=== PATIENT | male | born 1930 | race Caucasian/White ===

== ENCOUNTER 2017-10-17 06:12 | Inpatient (IN) ==
[2017-10-17] MEDS ORDERED: Heparin 10,000 UNITS/10 ML Vial (for IV use) ONE (06:26)
[2017-10-17] MEDS ORDERED: Thrombin Topical 20,000 UNIT Spray Kit TOPICAL ONE (06:26)
[2017-10-17] MEDS ORDERED: Heparin/NS PF Inj 500 ML ONE (06:26)
[2017-10-17] MEDS ORDERED: Protamine Sulfate Inj 50 MG/5 ML Vial ONE ×2 (06:26→10:31)
[2017-10-17] MEDS ORDERED: Bupivacaine PF 0.5% Inj 30 ML Vial ONE (06:30)
--- NOTE | 2017-10-17 07:22 | P.PNVS ---
- Pre-operative Note Planned Procedure: RIGHT leg bypass Interval History: The patient is feeling well, continued pain in the foot but no motor dysfunction. No CP, F/C or other changes in health that would preclude OR. Labs: Hct 31 plt 93 INR 1.2 cr 2.3 Blood: T&S Imaging: angiogram reviewed - poor target as explained to patient. Orders: NPO Ancef 2g IV OCTOR Post-operative Destination: PACU Operative site marked: Yes Consent: Informed consent has been obtained from Alan Fenton. I have explained the procedure in detail and discussed the risks, benefits, and potential complications. All questions have been answered. Patient Contact Information: Son [phone]
[2017-10-17] MEDS ORDERED: Chlorhexidine Gluconate 2% 1 Pack (2 Cloths) TOPICAL SCH (07:30)
[2017-10-17] MEDS ORDERED: Metoprolol Tartrate 25 MG Tablet PO SCH (07:30)
[2017-10-17] MEDS ORDERED: Sodium Chlor 0.9% Inj 500 ML IV.SIG SCH (08:00)
[2017-10-17] MEDS ORDERED: Glycopyrrolate Inj 1 MG/5 ML Syringe IV.PUSH ONE (11:06)
[2017-10-17] MEDS ORDERED: Lidocaine PF 1% Inj 5 ML Syringe INFILTRATN ONE (11:06)
[2017-10-17] MEDS ORDERED: Neostigmine Inj 5 MG/5 ML Syringe IV.PUSH ONE (11:06)
[2017-10-17] MEDS ORDERED: Phenylephrine/NS 1000 MCG/10ML Syringe IV.PUSH ONE (11:06)
--- NOTE | 2017-10-17 11:22 | P.OP ---
Date of procedure: 10/17/17 Procedure: R SFA-peroneal bypass (occluded popliteal aneurysm) with rGSV Implants: none Anesthesia: GETA Surgeon: Tomi Flowers MD Director Media: Maria Ward Estimated blood loss (mL): 200 IV fluids (mL): 2,000 Urine output (mL): 700 Operation and Findings: very disease and calcific arteries after bypass, + Doppler signals at peroneal and PT
[2017-10-17] MEDS ORDERED: Bisacodyl 10 MG Supp RECTAL PRN (11:23)
[2017-10-17] MEDS ORDERED: Morphine Inj 4 MG/ML Vial IV.PUSH PRN (11:23)
[2017-10-17] MEDS ORDERED: fentaNYL Citrate Inj 100 MCG/2 ML Ampul ONE ×2 (11:54→11:55)
--- NOTE | 2017-10-17 13:43 | MP ---
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 PROCEDURE PERFORMED: Right SFA to posterior tibial artery bypass with reverse great saphenous vein. ATTENDING SURGEON: Tomi Flowers MD MANAGER OF CORPORATE SURGEON: Maria Ward. ANESTHESIA: General. INDICATION: Mr. Fenton is an 87-year-old gentleman with a right popliteal artery aneurysm. He has recently occluded this aneurysm and has a right lower extremity rest pain. He was taken to the operating room for bypass. DESCRIPTION OF PROCEDURE: Informed consent was obtained from the patient, he was taken to the operating room and placed supine on the operating table. An appropriate timeout was taken to assure the patient's identity, operative site, and planned procedure. The administration of 2 grams of Ancef was initiated prior to skin incision and will be discontinued after single preoperative dose. Everyone in the room agreed with the timeout and we proceeded. He was prepped from his nipples to his toes and an incision was made in the medial aspect of the right leg, carried down through subcutaneous tissue with electrocautery. The saphenous vein was identified and dissected free from the mid thigh to the mid calf. Side branches were ligated with 3-0 silk. The vein was marked for orientation, clamped distally and transected with the distal limb being oversewn with 3-0 silk. The vein was clamped proximally and oversewn and placed in saline. The above-knee popliteal artery was identified after dissecting the medial aspect of the incision deeper and retracted the muscle posteriorly. The below-knee popliteal artery was exposed, it was noted to be aneurysmal and we dissected down to the proximal posterior tibial artery, which was calcified, but patent. This was dissected free for several centimeters and a tunnel was created between these 2 arterial exposures. The patient was then systemically heparinized is greater than 250. Proximal control of the distal SFA were obtained with profunda clamps and a longitudinal arteriotomy was made with an 11 blade, extended with Wardell scissors. The vein was spatulated and sewn end-to-side in reverse fashion and the proximal limb end anastomosis was performed with 6-0 Prolene suture. was flushed and noted to be hemostatic. Vein was clamped distally. The vein was distended and passed through the tunnel, distended, taking caution not to twist it. Proximal and distal control of the posterior tibial artery were obtained with profunda clamps and a longitudinal arteriotomy was made with an 11 blade, extended with Grover scissors. The vein was cut to the appropriate length, spatulated and sewn end-to-side with running 6-0 Prolene suture. 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 This was done with 5-0 Prolene suture. The clamps were released. There was a strong peroneal artery signal and a posterior tibial artery signal as well. The wounds were irrigated. The heparin reversed with protamine. The wounds were made hemostatic and closed with 2-0 Polysorb, 3-0 Polysorb, and 4-0 Monocryl. The sponge and needle counts were correct at the end of the case. I was present, scrubbed, and performed the entire procedure. MD REID Ochoa/ch/ll , 12:05 PM , 12:13 PM GARCIA
[2017-10-17] MEDS: Senna/Docusate Sodium 8.6/50 MG Tablet PO SCH (20:15)
[2017-10-17] MEDS: Famotidine 20 MG Tablet PO SCH (20:16)
[2017-10-18 05:53] LABS: Calcium 7.5 mg/dL (8.5-10.1); Carbon Dioxide 19.9 meq/L (21.0-32.0); Hematocrit 21.3 % (39.0-51.0); Hemoglobin 7.4 gm/dL (13.0-17.0); Mean Corpuscular Hemoglobin 34.4 pg (27.0-34.0); Mean Corpuscular Volume 98.3 fL (80.0-100.0); Mean Platelet Volume 7.2 fL (7.0-11.0); Platelet Count 89 th/mm3 (150-450); Potassium 4.7 meq/L (3.5-5.1); Red Blood Count 2.16 mil/mm3 (4.50-5.90); Red Cell Distribution Width 14.4 % (11.6-17.2); White Blood Count 10.8 th/mm3 (4.0-11.0)
[2017-10-18] MEDS ORDERED: Sodium Chlor 0.9% Inj 500 ML IV.SIG ONE (07:27)
--- NOTE | 2017-10-18 07:31 | P.PNVS ---
Subjective Post Op Day #: 1 Procedure: R SFA-PT bypass with rGSV for occluded popliteal aneurysm Subjective/Hospital Course: pain controlled, feels good overall. UOP low last night. Objective Vital Signs / I&O: Vital Signs 10/17/17 11:42 10/17/17 11:45 10/17/17 12:00 Temperature 96.0 F L Pulse Rate 51 L 51 L 52 L Respiratory Rate 16 16 16 Blood Pressure 121/73 118/65 115/78 Pulse Oximetry 100 100 100 10/17/17 12:15 10/17/17 16:00 10/17/17 17:31 Temperature 97.1 F L 97.6 F Pulse Rate 50 L 71 Respiratory Rate 16 16 16 Blood Pressure 112/63 122/62 Pulse Oximetry 100 96 10/17/17 19:00 10/17/17 20:00 10/17/17 21:00 Temperature 97.4 F L Pulse Rate 78 74 72 Respiratory Rate 16 Blood Pressure 113/65 Pulse Oximetry 95 10/17/17 22:00 10/17/17 23:00 10/18/17 00:00 Temperature 97.3 F L Pulse Rate 74 67 66 Respiratory Rate 16 Blood Pressure 102/61 Pulse Oximetry 96 10/18/17 01:00 10/18/17 02:00 10/18/17 03:00 Temperature 97.7 F Pulse Rate 68 64 61 Respiratory Rate 16 Blood Pressure 119/65 Pulse Oximetry 94 L 10/18/17 04:00 10/18/17 05:00 10/18/17 06:00 Temperature Pulse Rate 66 64 62 Respiratory Rate Blood Pressure Pulse Oximetry 10/18/17 07:00 Temperature 98.3 F Pulse Rate 60 Respiratory Rate 16 Blood Pressure 126/66 Pulse Oximetry 95 Intake & Output 10/17/17 10/18/17 10/18/17 18:59 06:59 18:59 Intake Total 2580 / 2580 960 / 960 Output Total 1020 / 1020 170 / 170 Balance 1560 / 1560 790 / 790 Weight 70.5 kg Intake: IV 1000 / 1000 Heparin/NS PF Inj 500 ML @ 0 0 / 0 mls/hr .ROUTE .STK-MED ONE Rx#: [id number] LR 1000 mL Inj 1,000 ML @ 30 1000 / 1000 mls/hr IV.SIG .Q24H SEA Rx#: [id number] Oral 580 / 580 960 / 960 Anesthesia Amount 1000 / 1000 Output: Estimated Blood Loss 200 / 200 Urine Amount (Catheter) 820 / 820 170 / 170 Indwelling Urethral Catheter 820 / 820 170 / 170 Other: # Bowel Movements 0 Exam: sitting in bed, comfortable Foot warm Leg mildly edematous strong peroneal signal and PT signal Laboratory Results - last 24 hr 10/17/17 10/18/17 10/18/17 07:00 05:37 05:37 WBC 10.8 RBC 2.16 L Hgb 7.4 L Hct 21.3 L MCV 98.3 MCH 34.4 H MCHC 35.0 RDW 14.4 Plt Count 89 L MPV 7.2 Sodium 137 Potassium 4.7 Chloride 106 Carbon Dioxide 19.9 L Anion Gap 11 BUN 41 H Creatinine 2.56 H Estimated GFR 24 L Random Glucose 122 H Calcium 7.5 L Blood Type O Positive Antibody Screen Negative Assessment and Plan - Assessment (1) Aneurysm of right popliteal artery Code(s): I72.4 - Aneurysm of artery of lower extremity Status: Acute - Plan POD#1 s/p R LE bypass for occluded popliteal aneurysm; bypass patent; low UOP and Hct low this morning 1. IVF bolus 500mL this morning, then MIVF at 50/h 2. 1U PRBC 3. Recheck CBC, BMP tomorrow 4. OOB with assistance - PT ordered 5. Rodriguez out and watch voiding closely; discussed with patient Discharge Planning: likely 2-3 days
[2017-10-18] MEDS ORDERED: Non-Formulary Drug (Omega-3 Fatty Acids-Fish Oil [Fish Oil] 1 CAP) PO SCH (09:00)
[2017-10-18] MEDS: Senna/Docusate Sodium 8.6/50 MG Tablet PO SCH ×2 (09:24→21:19)
[2017-10-18] MEDS: Isosorbide Mononitrate 30 MG ER 24HR Tablet (Imdur) PO SCH (09:24)
[2017-10-18] MEDS: Famotidine 20 MG Tablet PO SCH ×2 (09:24→21:19)
[2017-10-18] MEDS: amLODIPine 5 MG Tablet PO SCH (09:24)
[2017-10-18] MEDS: Calcitriol 0.25 MCG Capsule PO SCH (09:25)
--- NOTE | 2017-10-18 10:36 | P.DIET ---
Nutritional Evaluation Type of nutrition evaluation: initial (Patricia Screen) Assessment Assessment: Geriatric screening received for this pt. On heart healthy diet. Eating well post procedure. BMI 24.[address] if needed.
[2017-10-18] MEDS: Enoxaparin Inj 30 MG/0.3 ML Syringe SQ SCH (10:56)
[2017-10-19 04:14] LABS: Hematocrit 21.4 % (39.0-51.0); Hemoglobin 7.5 gm/dL (13.0-17.0); Mean Corpuscular Hemoglobin 33.8 pg (27.0-34.0); Mean Corpuscular Volume 96.4 fL (80.0-100.0); Platelet Count 62 th/mm3 (150-450); Red Blood Count 2.22 mil/mm3 (4.50-5.90); Red Cell Distribution Width 15.7 % (11.6-17.2); White Blood Count 8.1 th/mm3 (4.0-11.0)
[2017-10-19 04:45] LABS: Calcium 8.3 mg/dL (8.5-10.1); Carbon Dioxide 23.2 meq/L (21.0-32.0); Potassium 4.9 meq/L (3.5-5.1)
--- NOTE | 2017-10-19 07:43 | P.PNVS ---
Subjective Post Op Day #: 2 Procedure: R SFA-PT bypass with rGSV for occluded popliteal aneurysm Subjective/Hospital Course: 87/M s/p R LE distal bypass Pt reported improved R LE discomfort since surgical intervention Pt c/o R LE incisional pain with mild swelling and serosanguineous drainage Pain controlled Pt continues to feels good overall Pt reported feeling tired Denied SOB, weakness or CP + BM this am Low UOP Objective Vital Signs / I&O: Vital Signs 10/18/17 08:00 10/18/17 11:00 10/18/17 12:00 Temperature 98.5 F Pulse Rate 60 71 78 Respiratory Rate 16 Blood Pressure 126/66 Pulse Oximetry 96 10/18/17 12:13 10/18/17 12:29 10/18/17 13:00 Temperature 98 F 97.7 F Pulse Rate 71 72 62 Respiratory Rate 16 16 Blood Pressure 110/59 L Pulse Oximetry 10/18/17 13:14 10/18/17 14:00 10/18/17 15:00 Temperature 97.6 F 97.6 F Pulse Rate 72 62 64 Respiratory Rate 16 16 Blood Pressure 93/57 L Pulse Oximetry 100 10/18/17 16:00 10/18/17 17:00 10/18/17 18:00 Temperature Pulse Rate 78 66 72 Respiratory Rate Blood Pressure Pulse Oximetry 10/18/17 19:00 10/18/17 20:00 10/18/17 23:00 Temperature 96 F L 97.6 F Pulse Rate 61 55 L 61 Respiratory Rate 16 16 Blood Pressure 133/71 117/57 L Pulse Oximetry 100 97 10/19/17 00:00 10/19/17 01:00 10/19/17 03:00 Temperature 98.3 F Pulse Rate 67 68 82 Respiratory Rate 14 Blood Pressure 157/74 H Pulse Oximetry 95 10/19/17 04:00 10/19/17 05:00 10/19/17 06:14 Temperature Pulse Rate 72 77 75 Respiratory Rate Blood Pressure Pulse Oximetry Intake & Output 10/18/17 10/19/17 10/19/17 18:59 06:59 18:59 Intake Total 840 / 840 240 / 240 Output Total 310 / 310 100 / 100 Balance 530 / 530 140 / 140 Weight 73.5 kg Intake: Oral 840 / 840 240 / 240 Intake (Blood Product) Amt 0 / 0 Rbc As-3 Leukoreduced Unit 0 / 0 [id number] Output: Urine 200 / 200 100 / 100 Urine Amount (Catheter) 110 / 110 Indwelling Urethral Catheter 110 / 110 Other: # Bowel Movements 0 0 Exam: Alert in NAD/GCS 15 Resp even and clear + S1,S2 LE warm w/ motor intact Swelling to R LE noted Incision to R LE intact, well approximated with mild ecchymosis at the proximal end of the incision line Mild serosanguineous drainage at the distal end of the incision Multiphasic R DP/PT heard via Doppler Laboratory Results - last 24 hr 10/18/17 10/19/17 10/19/17 10:19 03:54 03:54 WBC 8.1 RBC 2.22 L Hgb 7.5 L Hct 21.4 L MCV 96.4 MCH 33.8 MCHC 35.0 RDW 15.7 Plt Count 62 L D MPV 7.0 Sodium 133 L Potassium 4.9 Chloride 100 Carbon Dioxide 23.2 Anion Gap 10 BUN 54 H Creatinine 3.01 H Estimated GFR 20 L Random Glucose 116 H Calcium 8.3 L D Blood Type MTS Gel Crossmatch See Detail 10/19/17 06:40 WBC RBC Hgb Hct MCV MCH MCHC RDW Plt Count MPV Sodium Potassium Chloride Carbon Dioxide Anion Gap BUN Creatinine Estimated GFR Random Glucose Calcium Blood Type O Positive MTS Gel Crossmatch See Detail Assessment and Plan - Assessment (1) Aneurysm of right popliteal artery Code(s): I72.4 - Aneurysm of artery of lower extremity Status: Acute - Plan POD#2 Pt s/p R LE bypass for occluded popliteal aneurysm Bypass patent Low UOP and Hct this am R LE swelling with mild incisional drainage present Plan Transfuse 2U PRBC Recheck CBC, BMP tomorrow AM Continue PT/OOB with assistance Continue to monitor UOP May apply a dry dressing to R LE incision- Change as needed if soiled Haley Fernandez NP [facility] [phone] Discharge Planning: likely 2-3 days
[2017-10-19] MEDS: Isosorbide Mononitrate 30 MG ER 24HR Tablet (Imdur) PO SCH (09:08)
[2017-10-19] MEDS: amLODIPine 5 MG Tablet PO SCH (09:08)
[2017-10-19] MEDS: Calcitriol 0.25 MCG Capsule PO SCH (09:08)
[2017-10-19] MEDS: Famotidine 20 MG Tablet PO SCH (09:09)
[2017-10-19] MEDS: Senna/Docusate Sodium 8.6/50 MG Tablet PO SCH (09:09)
[2017-10-19] MEDS: Enoxaparin Inj 30 MG/0.3 ML Syringe SQ SCH (10:54)
[2017-10-20 05:37] LABS: Hematocrit 25.4 % (39.0-51.0); Hemoglobin 9.2 gm/dL (13.0-17.0); Mean Corpuscular Hemoglobin 33.7 pg (27.0-34.0); Mean Corpuscular Volume 93.7 fL (80.0-100.0); Mean Platelet Volume 7.3 fL (7.0-11.0); Platelet Count 73 th/mm3 (150-450); Red Blood Count 2.72 mil/mm3 (4.50-5.90); White Blood Count 10.1 th/mm3 (4.0-11.0)
[2017-10-20 05:55] LABS: Calcium 8.2 mg/dL (8.5-10.1); Carbon Dioxide 21.1 meq/L (21.0-32.0); Potassium 4.4 meq/L (3.5-5.1)
[2017-10-20] MEDS: Senna/Docusate Sodium 8.6/50 MG Tablet PO SCH ×3 (06:20→20:39)
[2017-10-20] MEDS: Calcitriol 0.25 MCG Capsule PO SCH (08:53)
[2017-10-20] MEDS: Famotidine 20 MG Tablet PO SCH ×2 (08:54→20:39)
[2017-10-20] MEDS: amLODIPine 5 MG Tablet PO SCH (08:55)
[2017-10-20] MEDS: Isosorbide Mononitrate 30 MG ER 24HR Tablet (Imdur) PO SCH (08:56)
--- NOTE | 2017-10-20 09:50 | P.PNVS ---
Subjective Post Op Day #: 3 Procedure: R SFA-PT bypass with rGSV for occluded popliteal aneurysm Subjective/Hospital Course: looks good OOB ambulated yesterday foot ok leg edematous but stable voiding Objective Vital Signs / I&O: Vital Signs 10/19/17 10:00 10/19/17 10:49 10/19/17 10:50 Temperature 98.1 F Pulse Rate 90 85 Respiratory Rate 17 Blood Pressure 127/62 Pulse Oximetry 10/19/17 10:52 10/19/17 10:53 10/19/17 12:56 Temperature Pulse Rate 85 80 Respiratory Rate 17 Blood Pressure Pulse Oximetry 10/19/17 12:57 10/19/17 12:59 10/19/17 14:35 Temperature 98.3 F 98.1 F Pulse Rate 80 85 85 Respiratory Rate 19 18 Blood Pressure 133/85 135/65 Pulse Oximetry 95 93 L 10/19/17 15:59 10/19/17 17:56 10/19/17 18:00 Temperature 98.3 F Pulse Rate 78 75 80 Respiratory Rate 19 Blood Pressure 124/73 Pulse Oximetry 96 10/19/17 19:00 10/19/17 20:00 10/19/17 21:00 Temperature 98.7 F Pulse Rate 89 77 78 Respiratory Rate 18 Blood Pressure 128/70 Pulse Oximetry 94 L 10/19/17 21:10 10/19/17 22:00 10/19/17 23:00 Temperature 98.1 F 97.9 F Pulse Rate 80 79 80 Respiratory Rate 22 Blood Pressure 151/72 H 151/72 H Pulse Oximetry 96 96 10/20/17 00:00 10/20/17 01:00 10/20/17 02:00 Temperature Pulse Rate 81 77 86 Respiratory Rate Blood Pressure Pulse Oximetry 10/20/17 03:00 10/20/17 04:00 10/20/17 05:00 Temperature 98.2 F Pulse Rate 78 76 69 Respiratory Rate 18 Blood Pressure Pulse Oximetry 91 L 10/20/17 06:00 10/20/17 07:00 10/20/17 08:00 Temperature 98.7 F Pulse Rate 69 61 78 Respiratory Rate 17 Blood Pressure 100/72 Pulse Oximetry 95 10/20/17 09:00 Temperature Pulse Rate 68 Respiratory Rate Blood Pressure Pulse Oximetry Intake & Output 10/19/17 10/20/17 10/20/17 18:59 06:59 18:59 Intake Total 1050 / 1050 880 / 880 Output Total 700 / 700 Balance 1050 / 1050 180 / 180 Intake: Oral 650 / 650 480 / 480 Intake (Blood Product) Amt 400 / 400 400 / 400 Rbc As-3 Leukoreduced Unit 0 / 0 0 / 0 [id number] Rbc As-3 Leukoreduced Unit 400 / 400 [id number] Rbc As-3 Leukoreduced Unit 400 / 400 [id number] Output: Urine 700 / 700 Other: # Voids 4 4 Date of Last Bowel Movement 10/19/17 10/20/17 10/20/17 # Bowel Movements 2 1 Exam: R LE edematous but full ROM Strong peroneal and PT signals, even + DP signal incision with mild ooze, posterior flap ecchymoses stable Laboratory Results - last 24 hr 10/18/17 10/19/17 10/20/17 10:19 06:40 05:10 WBC 10.1 RBC 2.72 L Hgb 9.2 L Hct 25.4 L MCV 93.7 MCH 33.7 MCHC 36.0 RDW 16.0 Plt Count 73 L MPV 7.3 Sodium Potassium Chloride Carbon Dioxide Anion Gap BUN Creatinine Estimated GFR Random Glucose Calcium Blood Type O Positive Antibody Screen Negative MTS Gel Crossmatch See Detail See Detail 10/20/17 05:10 WBC RBC Hgb Hct MCV MCH MCHC RDW Plt Count MPV Sodium 130 L Potassium 4.4 Chloride 100 Carbon Dioxide 21.1 Anion Gap 9 BUN 48 H Creatinine 2.65 H Estimated GFR 23 L Random Glucose 108 H Calcium 8.2 L Blood Type Antibody Screen MTS Gel Crossmatch Assessment and Plan - Assessment (1) Aneurysm of right popliteal artery Code(s): I72.4 - Aneurysm of artery of lower extremity Status: Acute - Plan POD#3 Pt s/p R LE bypass for occluded popliteal aneurysm Bypass patent Hct improved cr improved rechecking both tomorrow May shower normalize OOB and PT Discharge Planning: likely 2-3 days
[2017-10-20] MEDS: Enoxaparin Inj 30 MG/0.3 ML Syringe SQ SCH (11:32)
[2017-10-21 04:19] LABS: Hematocrit 22.2 % (39.0-51.0); Hemoglobin 7.9 gm/dL (13.0-17.0); Mean Corpuscular HGB Conc 35.6 % (32.0-36.0); Mean Corpuscular Hemoglobin 33.8 pg (27.0-34.0); Mean Corpuscular Volume 94.9 fL (80.0-100.0); Mean Platelet Volume 7.6 fL (7.0-11.0); Platelet Count 71 th/mm3 (150-450); Red Blood Count 2.34 mil/mm3 (4.50-5.90); Red Cell Distribution Width 15.4 % (11.6-17.2)
[2017-10-21 04:49] LABS: Carbon Dioxide 21.5 meq/L (21.0-32.0); Potassium 4.2 meq/L (3.5-5.1)
[2017-10-21] MEDS: Famotidine 20 MG Tablet PO SCH ×2 (08:40→20:37)
[2017-10-21] MEDS: Calcitriol 0.25 MCG Capsule PO SCH (08:40)
[2017-10-21] MEDS: amLODIPine 5 MG Tablet PO SCH (08:42)
[2017-10-21] MEDS: Isosorbide Mononitrate 30 MG ER 24HR Tablet (Imdur) PO SCH (08:42)
[2017-10-21] MEDS: Senna/Docusate Sodium 8.6/50 MG Tablet PO SCH ×2 (08:42→20:38)
--- NOTE | 2017-10-21 09:05 | P.PNVS ---
Subjective Post Op Day #: 54 Procedure: R SFA-PT bypass with rGSV for occluded popliteal aneurysm Subjective/Hospital Course: looks good still swollen ambulating and laci po pain controlled Objective Vital Signs / I&O: Vital Signs 10/20/17 10:00 10/20/17 10:28 10/20/17 11:00 Temperature 97.9 F Pulse Rate 63 71 Respiratory Rate 17 16 Blood Pressure 144/70 H Pulse Oximetry 97 10/20/17 12:00 10/20/17 13:00 10/20/17 14:00 Temperature Pulse Rate 88 91 H 64 Respiratory Rate Blood Pressure Pulse Oximetry 10/20/17 15:00 10/20/17 16:00 10/20/17 17:00 Temperature 97.6 F Pulse Rate 69 77 77 Respiratory Rate 16 Blood Pressure 125/60 Pulse Oximetry 97 10/20/17 17:54 10/20/17 18:00 10/20/17 19:00 Temperature 97.9 F Pulse Rate 64 69 Respiratory Rate 16 20 Blood Pressure 139/77 Pulse Oximetry 100 10/20/17 20:00 10/20/17 21:11 10/20/17 22:00 Temperature Pulse Rate 63 61 66 Respiratory Rate Blood Pressure Pulse Oximetry 10/20/17 23:00 10/21/17 00:00 10/21/17 01:00 Temperature 97.9 F Pulse Rate 74 72 70 Respiratory Rate 18 Blood Pressure 163/74 H Pulse Oximetry 96 10/21/17 01:57 10/21/17 02:47 10/21/17 02:59 Temperature 98.5 F Pulse Rate 88 70 Respiratory Rate 16 20 Blood Pressure 138/68 Pulse Oximetry 94 L 10/21/17 04:00 10/21/17 04:58 10/21/17 05:55 Temperature Pulse Rate 65 73 78 Respiratory Rate Blood Pressure Pulse Oximetry Intake & Output 10/20/17 10/21/17 10/21/17 18:59 06:59 18:59 Intake Total 720 / 720 480 / 480 Output Total 350 / 350 650 / 650 Balance 370 / 370 -170 / -170 Weight 72 kg Intake: Oral 720 / 720 480 / 480 Output: Urine 350 / 350 650 / 650 Other: Date of Last Bowel Movement 10/20/17 10/20/17 # Bowel Movements 1 Exam: R LE swollen but ok Strong pedal signals Laboratory Results - last 24 hr 10/21/17 10/21/17 03:37 03:37 WBC 7.0 RBC 2.34 L Hgb 7.9 L Hct 22.2 L MCV 94.9 MCH 33.8 MCHC 35.6 RDW 15.4 Plt Count 71 L MPV 7.6 Sodium 134 L Potassium 4.2 Chloride 100 Carbon Dioxide 21.5 Anion Gap 13 BUN 44 H Creatinine 2.39 H Estimated GFR 26 L Random Glucose 97 Calcium 8.0 L Assessment and Plan - Assessment (1) Aneurysm of right popliteal artery Code(s): I72.4 - Aneurysm of artery of lower extremity Status: Acute - Plan POD#4 Pt s/p R LE bypass for occluded popliteal aneurysm Bypass patent needs more PT/OOB/rehab Discharge Planning: Tues to home vs rehab
[2017-10-21] MEDS: Enoxaparin Inj 30 MG/0.3 ML Syringe SQ SCH (12:06)
[2017-10-22] MEDS: Calcitriol 0.25 MCG Capsule PO SCH (09:20)
[2017-10-22] MEDS: Senna/Docusate Sodium 8.6/50 MG Tablet PO SCH ×2 (09:20→21:10)
[2017-10-22] MEDS: amLODIPine 5 MG Tablet PO SCH (09:21)
[2017-10-22] MEDS: Famotidine 20 MG Tablet PO SCH ×2 (09:21→21:09)
[2017-10-22] MEDS: Isosorbide Mononitrate 30 MG ER 24HR Tablet (Imdur) PO SCH (09:21)
--- NOTE | 2017-10-22 09:22 | P.PNVS ---
Subjective Post Op Day #: 5 Procedure: R SFA-PT bypass with rGSV for occluded popliteal aneurysm Subjective/Hospital Course: looks good still swollen ambulating and laci po pain controlled Objective Vital Signs / I&O: Vital Signs 10/21/17 10:00 10/21/17 11:00 10/21/17 12:00 Temperature 97.7 F Pulse Rate 64 71 72 Respiratory Rate 16 Blood Pressure 141/72 H Pulse Oximetry 96 10/21/17 13:00 10/21/17 14:00 10/21/17 15:00 Temperature 98.0 F Pulse Rate 69 77 75 Respiratory Rate 16 Blood Pressure 126/60 Pulse Oximetry 96 10/21/17 16:00 10/21/17 17:00 10/21/17 18:00 Temperature Pulse Rate 80 77 67 Respiratory Rate Blood Pressure Pulse Oximetry 10/21/17 19:00 10/21/17 20:00 10/21/17 21:00 Temperature 98.2 F Pulse Rate 62 60 61 Respiratory Rate 16 Blood Pressure 139/67 Pulse Oximetry 10/21/17 22:00 10/21/17 23:00 10/22/17 00:00 Temperature 98.5 F Pulse Rate 59 L 66 67 Respiratory Rate 16 Blood Pressure 144/70 H Pulse Oximetry 95 10/22/17 01:00 10/22/17 02:00 10/22/17 03:00 Temperature 98.1 F Pulse Rate 67 68 73 Respiratory Rate 16 Blood Pressure 144/73 H Pulse Oximetry 95 10/22/17 04:00 10/22/17 05:00 10/22/17 06:00 Temperature Pulse Rate 74 67 75 Respiratory Rate Blood Pressure Pulse Oximetry 10/22/17 07:00 10/22/17 07:36 Temperature 98.0 F Pulse Rate 68 71 Respiratory Rate 16 Blood Pressure 141/70 H Pulse Oximetry 96 Intake & Output 10/21/17 10/22/17 10/22/17 18:59 06:59 18:59 Intake Total 1460 / 1460 480 / 480 Output Total 750 / 750 Balance 710 / 710 480 / 480 Weight 70 kg Intake: IV 500 / 500 Oral 960 / 960 480 / 480 Output: Urine 750 / 750 Other: # Voids 4 Date of Last Bowel Movement 10/21/17 10/21/17 # Bowel Movements 1 Exam: R LE swollen but foot warm and great motor strength Assessment and Plan - Assessment (1) Aneurysm of right popliteal artery Code(s): I72.4 - Aneurysm of artery of lower extremity Status: Acute - Plan POD#5 Pt s/p R LE bypass for occluded popliteal aneurysm Bypass patent needs more PT/OOB/rehab Discharge Planning: Tues to home vs rehab
[2017-10-22] MEDS: Enoxaparin Inj 30 MG/0.3 ML Syringe SQ SCH (11:28)
[2017-10-23] MEDS: Calcitriol 0.25 MCG Capsule PO SCH (08:33)
[2017-10-23] MEDS: Famotidine 20 MG Tablet PO SCH (08:33)
[2017-10-23] MEDS: amLODIPine 5 MG Tablet PO SCH (08:33)
[2017-10-23] MEDS: Isosorbide Mononitrate 30 MG ER 24HR Tablet (Imdur) PO SCH (08:33)
[2017-10-23] MEDS: Senna/Docusate Sodium 8.6/50 MG Tablet PO SCH (08:33)
--- NOTE | 2017-10-23 09:27 | P.DCO ---
- Physical Therapy Order: Evaluate and treat, Improve ambulation, Strength and gait training - Home Health Nursing Order: Medical education, Signs/symptoms of disease process, Wound care and dressing changes Instructions: Cleanse R LE incision site w/ sterile Normal Saline Apply sterile 4x4 then Kerlix then "paper tape" Apply lightly an bolivar wrap to RIGHT lower extremity- IF SWELLING PRESENT Change daily or as needed if soiled Call the office ([phone]) if incision has an infectious appearance - Certification I have seen patient Alan Fenton on 10/23/17. My clinical findings support the need for the requested home health care services because: Limited mobility due to disease progression, Limited ability to care for self, High risk of falls I certify that my clinical findings support that this patient is homebound because: Pt is medically cleared for d/c and will benefit from home health services and out pt PT for optimal wound healing and continued out pt surveillance and management Post-op weakness, Unsteady gait/balance
--- NOTE | 2017-10-23 09:35 | P.PNVS ---
Subjective Post Op Day #: 6 Procedure: R SFA-PT bypass with rGSV for occluded popliteal aneurysm Subjective/Hospital Course: 87/M s/p R LE distal bypass for revascularization Pt w/o complaints this am looks good pain controlled Incision to R LE intact w/o infectious appearance Objective Vital Signs / I&O: Vital Signs 10/22/17 10:00 10/22/17 10:56 10/22/17 11:00 Temperature 97.8 F Pulse Rate 66 81 98 H Respiratory Rate 16 Blood Pressure 109/75 Pulse Oximetry 99 10/22/17 12:00 10/22/17 13:00 10/22/17 14:00 Temperature Pulse Rate 64 74 70 Respiratory Rate Blood Pressure Pulse Oximetry 10/22/17 15:00 10/22/17 16:00 10/22/17 17:10 Temperature 98.1 F Pulse Rate 71 66 85 Respiratory Rate 16 Blood Pressure 121/69 Pulse Oximetry 97 10/22/17 18:00 10/22/17 19:00 10/22/17 19:49 Temperature 98.1 F Pulse Rate 68 99 H 64 Respiratory Rate 18 Blood Pressure 144/65 H Pulse Oximetry 96 10/22/17 20:00 10/22/17 21:00 10/22/17 22:00 Temperature Pulse Rate 70 65 92 H Respiratory Rate Blood Pressure Pulse Oximetry 10/22/17 23:00 10/22/17 23:05 10/23/17 00:00 Temperature 98.0 F Pulse Rate 74 75 67 Respiratory Rate 18 19 Blood Pressure 150/74 H Pulse Oximetry 97 10/23/17 01:00 10/23/17 02:00 10/23/17 03:00 Temperature Pulse Rate 65 62 79 Respiratory Rate Blood Pressure Pulse Oximetry 10/23/17 04:00 10/23/17 04:20 10/23/17 05:00 Temperature 98.2 F Pulse Rate 60 70 61 Respiratory Rate 17 Blood Pressure 146/72 H Pulse Oximetry 97 10/23/17 06:00 10/23/17 07:00 10/23/17 08:00 Temperature 98.5 F Pulse Rate 62 69 87 Respiratory Rate 17 Blood Pressure 148/82 H Pulse Oximetry 95 10/23/17 09:00 Temperature Pulse Rate 59 L Respiratory Rate Blood Pressure Pulse Oximetry Intake & Output 10/22/17 10/23/17 10/23/17 18:59 06:59 18:59 Intake Total 960 / 960 320 / 320 Balance 960 / 960 320 / 320 Weight 69.5 kg Intake: Oral 960 / 960 320 / 320 Other: # Voids 5 # Urine Diapers 6 Date of Last Bowel Movement 10/22/17 10/22/17 10/22/17 # Bowel Movements 1 Exam: GENERAL: A&OX3,GCS 15,NAD SKIN: Warm and dry/R LE incision intact w/ ecchymosis kylie wound/ scant amount of drainage present while dressing was changed at the distal end of incision line HEAD: Normocephalic. EYES: No scleral icterus. No injection or drainage. NECK: Supple, trachea midline. No JVD or lymphadenopathy. CARDIOVASCULAR: Regular rate and rhythm without murmurs, gallops, or rubs. RESPIRATORY: Breath sounds equal bilaterally. No accessory muscle use. GASTROINTESTINAL: Abdomen soft, non-tender, nondistended/+ flatulence/+ BM yesterday MUSCULOSKELETAL: No cyanosis, or edema. Pulses: R DP with biphasic signals heard via Doppler R PT with biphasic signals heard via Doppler LE warm w/ motor intact Assessment and Plan - Assessment (1) Aneurysm of right popliteal artery Code(s): I72.4 - Aneurysm of artery of lower extremity Status: Acute - Plan POD#6 Pt s/p R LE bypass for occluded popliteal aneurysm Bypass patent Plan Pt clear for d/c w/ [facility] Discussed post operative care and management w/ pt Questions answered Arranged out pt f/u in 2W with a surveillance VIRGEN/Graft scan Haley Fernandez NP [facility] [phone] Discharge Planning: Today w/ [facility] and out pt Physical Therapy
--- NOTE | 2017-10-23 09:48 | P.DS ---
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 Pt several weeks ago c/o new onset "severe" right foot pain, purplish discoloration and cool to touch for a duration of 5 days Pt c/o R LE claudication when walking 100 feet B LE w/ motor intact Procedure: R SFA-PT bypass with rGSV for occluded popliteal aneurysm Significant Findings: GENERAL: A&OX3,GCS 15,NAD SKIN: Warm and dry/R LE incision intact w/ ecchymosis kylie wound/ scant amount of drainage present while dressing was changed at the distal end of incision line HEAD: Normocephalic. EYES: No scleral icterus. No injection or drainage. NECK: Supple, trachea midline. No JVD or lymphadenopathy. CARDIOVASCULAR: Regular rate and rhythm without murmurs, gallops, or rubs. RESPIRATORY: Breath sounds equal bilaterally. No accessory muscle use. GASTROINTESTINAL: Abdomen soft, non-tender, nondistended/+ flatulence/+ BM yesterday MUSCULOSKELETAL: No cyanosis, or edema. 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 Pt several weeks ago c/o new onset "severe" right foot pain, purplish discoloration and cool to touch for a duration of 5 days Pt c/o R LE claudication when walking 100 feet B LE w/ motor intact Pt S/P R SFA-PT bypass with rGSV for occluded popliteal aneurysm PoD 1 pain controlled, feels good overall. UOP low last night. POD 2 Pt reported improved R LE discomfort since surgical intervention Pt c/o R LE incisional pain with mild swelling and serosanguineous drainage Pain controlled Pt continues to feels good overall Pt reported feeling tired Denied SOB, weakness or CP + BM this am Low UOP POD 3 looks good OOB ambulated yesterday foot ok leg edematous but stable voiding POD 4 looks good still swollen ambulating and laci po pain controlled POD 5 looks good still swollen ambulating and laci po pain controlled POD 6 Pt w/o complaints this am looks good pain controlled Incision to R LE intact w/o infectious appearance Pt w/o claudication or rest pain LE warm w/ motor intact Pt clear for d/c with HHS and OP PT Arranged f/u in 2W with a surveillance GS and an VIRGEN Pt made aware of plan E forcse reviewed- Pt Rx 3D out patient pain medications for post operative pain management - Discharge Instructions Any questions or concerns: Call [facility] at [facility] [phone] <Tomi Flowers - Last Filed: 10/23/17 10:02> Discharge Summary - Admission Date 10/17/17 06:12 - Admission Diagnosis (1) Aneurysm of right popliteal artery - Summary Hospital Course: Overall he did very well. Had some post-operative surgical site, nonarterial oozing likely related to inflammation and rec'd 3U of perioperative PRBC. Leg continued to look great and at the time of discharge, he was eating, voiding, and having BMs. His foot had good perfusion and his pain was controlled. Ready for discharge as above. - Discharge Instructions Any questions or concerns: Call [facility] at [facility] [phone] Discharge Plan - Discharge Order Discharge Orders: Discharge Order (Routine); Ordered 10/23/17 Ordered By: Haley Fernandez - Physicians Team Primary Care Provider: UNKNOWN, Attending Provider: Tomi Flowers Other Providers: Everette Miller MD - Rxs /Orders / Referrals /Forms Prescriptions: New oxycodone-acetaminophen [Percocet] 5-325 mg Tablet 1 tab PO Q4-6H PRN (Reason: pain ) Qty: 20 RF: 0 Continue amlodipine 5 mg Tablet 5 mg PO DAILY aspirin [Aspir-81] 81 mg Tablet,Delayed Release (Dr/Ec) 81 mg PO DAILY calcitriol 0.25 mcg Capsule 1 cap PO DAILY carvedilol 3.125 mg Tablet 3.125 mg PO BID isosorbide mononitrate 30 mg Tablet Extended Release 24 Hr 30 mg PO DAILY losartan-hydrochlorothiazide 100-12.5 mg Tablet 1 tab PO DAILY niacin [Slo-Niacin] 500 mg Tablet Extended Release 500 mg PO BID omega-3 fatty acids-fish oil [Fish Oil] 360-1,200 mg Capsule 1 cap PO DAILY simvastatin 40 mg Tablet 40 mg PO QPM Referrals: Tomi Flowers MD [Physician] - See Instructions (Your Surveillance VIRGEN and graft scan is scheduled on 11/06/17 at 10:00 am Your post operative follow up is scheduled on 11/07/17 at 3:00 pm) UNKNOWN, [Primary Care Provider] - See Instructions - Discharge Instructions Patient Printed Instructions: Oxycodone/Acetaminophen (By mouth), Heart Healthy Diet (GEN), Peripheral Artery Disease (GEN) Additional Instructions: Discharge Care Plan Goals Directions to Meet your Goals: 1. Pain Relief: You will recover faster after surgery if your pain is kept under control: * Take pain medicine as directed by your doctor. * Tell your doctor if you have questions about what youre feeling, if your medicines dont reduce your pain, or if you suddenly feel worse. 2. Activity: * Dont drive until your doctor says its OK. And never drive while taking opioid pain medicine. * Ask someone to stand nearby while you shower or do other activities, just in case you need help. * Until approved by doctor, avoid mowing the lawn, vacuuming or driving 3. Diet and Exercise: * Maintain a healthy weight. If needed, get help to loose extra pounds. * Avoid fatty and fried foods. Stick to lean meats, such as chicken or fish. * Cut back on salt: - Limit canned, dried, packaged, and fast foods. - Dont add salt to your food at the table. - Season foods with herbs instead of salt when you cook * Ask your healthcare provider when you can start a walking program: - If you havent already started a walking program in the hospital, begin with short walks (about 5 minutes) at home. Go a little longer each day. - Choose a safe place with a level surface, such as a local park or mall. - Wear supportive shoes to prevent injury to your knees and ankles. - Walk with someone. Its more fun and helps you stay with it. 4. Prevent Falls/Injury: * If you are unstable on your feet, remember to ask for help from others. * Avoid using very hot water while showering. It can affect your circulation and make you dizzy. * Free up your hands so that you can use them to keep balance. Use a sho pack , apron, or pockets to carry things. * Arrange your household to keep the items you need handy. Keep everything else out of the way. * Remove items that may cause you to fall, such as throw rugs and electrical cords. * Use nonslip bath mats, grab bars, an elevated toilet seat, and a shower chair in your bathroom * Sit on a shower stool or chair when you shower to keep from falling. 5. Incision Care: Healing takes several weeks. * Check your incision daily for redness, swelling, tenderness, or drainage. * Prevent infection by washing your hands often. If an infection occurs, it will need to be treated right away. * Call your doctor right away if you think you may have an infection. Symptoms include a fever or an incision that leaks white, green, or yellow fluid. * Don't soak your incision in water until your doctor says its OK. This means no hot tubs, bathtubs, or swimming pools. * Follow your doctor's instructions for changing the dressing. * Dont rub the incision, or apply creams or lotions to it. 6. Follow-Up: Do Not miss your follow-up appointment. Keep up with all your appointments and yearly check ups When to call your doctor: Call your doctor right away if you have: Fever of 100.4F (38C) or higher, or as directed by your doctor Signs of infection (redness, swelling, drainage, or warmth) at the incision site New or increased swelling Unrelieved pain at the incision site(s) Changes in the location, type, or severity of pain
[2017-10-23 09:53] VITALS: RESP 16
[2017-10-23] MEDS: Enoxaparin Inj 30 MG/0.3 ML Syringe SQ SCH (10:57)
[2017-10-23 11:31] VITALS: BP 130/70; PULSE 72; TEMP 98; O2SAT 98
== END 2017-10-23 12:25 | disposition home health service (06) ==
LOC: HSDI 06:12 → HCPC 13:02
PROVIDERS: ADMIT Surgery; ATTEND Surgery